=== PATIENT | male | born 1995 | race Caucasian/White ===

== ENCOUNTER 2022-05-27 09:19 | Emergency (ER) | payer OTHER ==
[~2022-05-27] VITALS: Ht 180.3 cm; Wt 112.5 kg
== END 2022-05-27 12:50 | disposition home or self-care (01) ==
LOC: ER 09:19
DX: R51.9 Headache, unspecified (principal); Z20.828 Contact with and (suspected) exposure to other viral communicable diseases

== ENCOUNTER 2023-09-21 18:27 | Emergency (ER) | payer OTHER ==
[~2023-09-21] VITALS: Ht 180.3 cm; Wt 102.5 kg
[2023-09-21 23:15] LABS: HEMATOCRIT 42.3 % (39.0-48.0); HEMOGLOBIN 14.4 g/dL (13-16.00); MEAN CELL VOLUME 82.7 fL (80.0-100.00); MEAN CORPUSCULAR HEMOGLOBIN 28.2 pg (27.00-32.0); MEAN CORPUSCULAR HGB CONC 34.1 g/dl (32.0-36.0); PLATELET COUNT 215 K/uL (150-450); RED BLOOD COUNT 5.12 M/uL (4.00-6.00); RED CELL DISTRIBUTION WIDTH 14.2 % (11.5-14.5)
== END 2023-09-22 00:28 | disposition home or self-care (01) ==
LOC: ER 18:27
PROVIDERS: General Practice
DX: J06.9 Acute upper respiratory infection, unspecified (principal); Z20.822 Contact with and (suspected) exposure to COVID-19
CPT/HCPCS: 36415; 96372; 99282; J1100

== ENCOUNTER 2025-03-18 11:15 | Emergency (ER) | payer OTHER ==
[~2025-03-18] VITALS: Ht 180.3 cm; Wt 126.6 kg
[~2025-03-18 11:15] MED LIST: PEPCID AC20 MG PO
[2025-03-18] MEDS ORDERED: GUAIFENESIN/DEXTROMETHORPHAN 100MG/10ML BLIST.PACK PO ONE ×2 (14:21→14:30)
[2025-03-18 14:39] LABS: BASO % 0.3 % (0.1-1.2); EOS # 0.12 (0.04-0.54); EOS % 1.9 % (0.7-7.0); HEMATOCRIT 41.8 % (40.1-51.0); HEMOGLOBIN 13.8 g/dL (13.7-17.5); LYMPH # 0.94 (1.18-3.74); MEAN CORPUSCULAR HEMOGLOBIN 26.4 pg (25.6-32.2); MONO # 1.02 (0.24-0.82); MONO % 16.2 % (4.7-12.5); NEUT # 4.17 (1.56-6.13); NEUT % 66.4 % (34.0-71.1); PLATELET COUNT 171 K/uL (163-369); RED BLOOD COUNT 5.22 M/uL (4.63-6.08); RED CELL DISTRIBUTION WIDTH 13.6 % (11.6-14.4)
[2025-03-18 14:49] LABS: INFLUENZA B AG NEGATIVE (NEGATIVE)
[2025-03-18 14:50] LABS: INFLUENZA A AG POSITIVE (NEGATIVE)
[2025-03-18 14:51] LABS: COVID-19 AG NEGATIVE (NEGATIVE)
[2025-03-18] MEDS ORDERED: OSELTAMIVIR PHOSPHATE 75 MG CAPSULE PO ONE ×2 (16:14→16:15)
[2025-03-18] MEDS ORDERED: GILTUSS COUGH-118 M1 PO (16:20)
[2025-03-18] MEDS ORDERED: OSEL75CA PO (16:20)
[2025-03-18] MEDS ORDERED: ACETAMINOPHEN500 M1 PO (16:20)
== END 2025-03-18 16:27 | disposition home or self-care (01) ==
LOC: ER 11:22
PROVIDERS: Preventive Medicine Public Health & General Preventive Medicine
DX: J10.1 Influenza due to other identified influenza virus with other respiratory manifestations (principal); J45.909 Unspecified asthma, uncomplicated; Z20.822 Contact with and (suspected) exposure to COVID-19